=== PATIENT | female | born 1975 | race African-American/Black ===

== ENCOUNTER 2023-01-13 09:58 | Emergency (ER) | payer SELFPAY ==
[2023-01-13 11:39] LABS: Bilirubin Neg (Negative); Blood, Urine 250 (Negative); Clarity Cloudy (Clear); Glucose, Urine (Dipstick) Normal (Negative); Ketone, Urine 5 mg/dL (Negative); Leukocyte 500 (Negative); Nitrite Negative (Negative); Protein, Urine (Dipstick) 100 mg/dl (Neg-Trace)
[2023-01-13] MEDS ORDERED: Ketorolac Tromethamine 30 MG/ML VIAL ONE (11:44)
[2023-01-13 12:51] LABS: RBC/HPF Greater than 50 HPF (0-3)
[2023-01-13 12:52] LABS: Bacteria/HPF 1+ HPF (None Seen)
[2023-01-13 12:53] LABS: Mucous/LPF 1+ LPF (<2+); Trichomonas/HPF 1+ HPF (None Seen)
[2023-01-13 13:03] LABS: #Basophils 0.1 10x3/uL (0.0-0.2); #Eosinphils 0.2 10x3/uL (0.0-0.5); #Monocytes 0.5 10x3/uL (0.0-1.1); %Basophils 0.4 % (0.0-2.0); %Eosinophils 1.6 % (0.0-6.0); %Lymphocytes 25.4 % (18.0-47.0); %Monocytes 4.6 % (0.0-10.0); %Neutrophils 67.7 % (40.0-75.0); Hemoglobin 5.2 g/dL (12.0-15.5); Mean Corpuscular HGB CONC 30.2 g/dL (32.0-36.0); Mean Corpuscular Hemoglobin 25.7 pg (27.0-33.0); Mean Corpuscular Volume 85.1 fl (81.6-98.3); Mean Platelet Volume 9.3 fl (7.4-10.4); Platelet Count 530 10x3/uL (150-450); RBC Distribution Width 14.8 % (11.5-14.5); Red Blood Cell (RBC) Count 2.02 10x6/uL (3.90-5.03); White Blood Cell (WBC) Count 11.8 10x3/uL (3.5-10.5)
[2023-01-13 13:09] LABS: BHCG - Serum Negative (NEGATIVE); Pregs Control Background? CLEAR/WHITE (CLR/WHITE); Pregs Control Bar Appear? YES (CONTROL BAR)
[2023-01-13 13:14] LABS: ALT (SGPT) 10 U/L (8-55); AST (SGOT) 12 U/L (5-34); Albumin 4.1 g/dL (3.5-5.0); Alkaline Phosphatase 70 U/L (40-110); Anion Gap 13 mmol/L (10-20); BUN (Urea Nitrogen) 13 mg/dL (7.0-18.7); Bilirubin, Total 0.3 mg/dL (0.2-1.2); Calc. Creatinine Clearance 0 mL/min (70-130); Calcium 8.6 mg/dL (7.8-10.44); Carbon Dioxide 20 mmol/L (22-29); Chloride 108 mmol/L (98-107); Estimated GFR 95; Globulin 3.1 g/dL (2.4-3.5); Glucose 104 mg/dL (70-105); Potassium 3.3 mmol/L (3.5-5.1); Protein, Total 7.2 g/dL (6.0-8.3); Sodium 138 mmol/L (136-145)
[2023-01-13 13:38] LABS: PTT 24.2 sec (22.0-33.0); Prothrombin Time 10.3 sec (9.5-12.1)
[2023-01-13] MEDS ORDERED: Tranexamic Acid 1,000 MG/10 ML VIAL ONE (14:54)
[2023-01-13 18:36] LABS: Hemoglobin 8.1 g/dL (12.0-15.5)
== END 2023-01-13 19:08 | disposition home or self-care (01) ==
LOC: CSHERS 09:58
DX: A59.09 Other urogenital trichomoniasis (principal); D64.9 Anemia, unspecified; N93.8 Other specified abnormal uterine and vaginal bleeding; I10 Essential (primary) hypertension; F17.210 Nicotine dependence, cigarettes, uncomplicated; Z79.899 Other long term (current) drug therapy
CPT/HCPCS: 36415; 36430; 76856; 80053; 81003; 81015; 84703; 85025; 85610; 85730; 86850; 86900; 86901; 87086; 93005; 96365; 96372; J1885; P9016